=== PATIENT | female | born 1975 | race Caucasian/White ===

== ENCOUNTER 2024-12-23 08:56 | Day surgery (SDC) | payer OTHER ==
[2024-12-22 11:27] VITALS: BMI 24.0
[2024-12-23] MEDS ORDERED: Ropivacaine 0.5% HCl/PF (150 MG/30 ML VIAL) ONE (09:27)
[2024-12-23] MEDS ORDERED: Famotidine/PF 20 mg/2ml Vial ONE (09:36)
[2024-12-23] MEDS ORDERED: CEFAZOLIN 2 GM VIAL ONE (09:44)
[2024-12-23 09:53] LABS: Hematocrit 33.3 % (36.0-47.0); Hemoglobin 10.7 g/dL (12.0-16.0); Mean Corpuscular Hemoglobin 28.6 pg (27.0-31.0); Mean Corpuscular Volume 89.0 fL (78.0-98.0); Platelet Count 197 10x3/uL (130-400); Red Blood Cell (RBC) Count 3.74 mill/uL (4.20-5.40); White Blood Cell (WBC) Count 6.68 10x3/uL (4.8-10.8)
[2024-12-23] MEDS ORDERED: PROPOFOL 200 MG/20 ML VIAL ONE (10:48)
[2024-12-23] MEDS ORDERED: Ondansetron PF 4 MG/2 ML Vial ONE (11:02)
[2024-12-23] MEDS ORDERED: Ketorolac Tromethamine 30 MG (1 mL) VIAL ONE (11:02)
== END 2024-12-23 14:05 | disposition home or self-care (01) ==
LOC: SDC 08:56
PROVIDERS: ATTEND Orthopaedic Surgery Hand Surgery
PROC: 0PSH04Z Reposition Right Radius with Internal Fixation Device, Open Approach (ICD-10-PCS; principal; 2024-12-23)
DX: S52.571A Other intraarticular fracture of lower end of right radius, initial encounter for closed fracture (principal); Z91.040 Latex allergy status; F17.200 Nicotine dependence, unspecified, uncomplicated; W01.0XXA Fall on same level from slipping, tripping and stumbling without subsequent striking against object, initial encounter
CPT/HCPCS: 85027; C1713; C1889; J1100; J1308; J1885; J2250; J2405; J2704; J2795; J3010